=== PATIENT | female | born 1990 | race Caucasian/White ===

== ENCOUNTER 2019-08-17 02:02 | Emergency (ER) | payer MEDICAID ==
[2019-08-17] MEDS: DEXAMETHASONE 10 MG/ML 1 ML INJ IM (02:35)
[2019-08-17] MEDS: ALBUTEROL 0.5% (NEB) 2.5 MG/0.5 ML AMP INH (02:40)
== END 2019-08-17 04:37 | disposition home or self-care (01) ==
LOC: FTE 02:02
DX: J45.901 Unspecified asthma with (acute) exacerbation (principal)
CPT/HCPCS: 94644; 96372; 99284-25